=== PATIENT | male | born 1955 | race African-American/Black ===

== ENCOUNTER 2024-08-05 20:08 | Emergency (ER) | payer MEDICARE, MEDICAID ==
[~2024-08-05] VITALS: Ht 172.7 cm; Wt 80.0 kg
[2024-08-05 20:10] VITALS: O2SAT 99
[2024-08-05 21:16] LABS: BASOPHILS % 0.2 % (0.0-2.0); HEMATOCRIT. 43.3 % (42.0-52.0); HEMOGLOBIN. 14.9 g/dL (14.0-18.0); LYMPHOCYTES % 35.7 % (20.0-50.0); MEAN CORPUSCULAR HEMOGLOBIN 31.1 pg (28.0-32.0); MEAN CORPUSCULAR HGB CONC 34.3 g/dL (31.0-37.0); MEAN CORPUSCULAR VOLUME 90.8 fL (80.0-94.0); MEAN PLATELET VOLUME 7.4 fl (7.4-10.4); MONOCYTES % 7.6 % (2.0-8.0); NEUTROPHILS % 55.5 % (40.0-76.0); PLATELET 362 x1000/uL (130-400); RED BLOOD CELL COUNT 4.77 mill/uL (4.7-6.1); RED CELL DISTRIBUTION WIDTH 13.3 % (11.6-14.6); WHITE BLOOD COUNT 17.1 x1000/uL (4.5-11.0)
[2024-08-05 21:20] LABS: CHLORIDE 101 mEq/L (98-107); POTASSIUM 3.2 mEq/L (3.5-5.1); SODIUM 139 mEq/L (136-145)
[2024-08-05 21:21] LABS: CARBON DIOXIDE 28 mEq/L (21-32)
[2024-08-05 21:22] LABS: CALCIUM 9.6 mg/dL (8.7-10.4)
[2024-08-05 21:26] LABS: GLUCOSE 173 mg/dL (70-105)
[2024-08-05 21:27] LABS: UREA NITROGEN BLOOD 16 mg/dL (9-23)
[2024-08-05 21:42] LABS: ETHANOL BLOOD < 10 mg/dL (<10)
[2024-08-05 21:46] VITALS: BP 170/125; PULSE 81; RESP 18; TEMP 36.5; O2SAT 99
[2024-08-05 22:07] LABS: CREATINE KINASE 246 IU/L (46-171)
[2024-08-05] MEDS: CLONIDINE 0.1MG TABLET PO NR (23:34)
== END 2024-08-05 23:35 | disposition home or self-care (01) ==
LOC: ER 20:08
DX: I16.0 Hypertensive urgency (principal); R55 Syncope and collapse; E11.9 Type 2 diabetes mellitus without complications; Z98.890 Other specified postprocedural states
CPT/HCPCS: 36415; 71045; 80048; 80320; 82550; 85025; 93005; 99291; G0480